=== PATIENT | female | born 1960 | race Caucasian/White ===

== ENCOUNTER 2018-03-28 10:37 | Emergency (ER) | payer BC ==
[~2018-03-28] VITALS: Ht 170.2 cm; Wt 97.1 kg
[2018-03-28 11:45] VITALS: BP 138/72
[2018-03-28] MEDS ORDERED: diphenhydrAMINE HCL 25 MG CAPSULE PO ONE (11:45)
--- NOTE | 2018-03-28 11:47 | PHYS DOC ---
Past Medical History Past Medical History: COPD, Diabetes-Type II, High Cholesterol, Hypertension, Other Additional Past Medical Histor: Eczema. Past Surgical History: Appendectomy, Cholecystectomy, Hysterectomy, Other Additional Past Surgical Histo: Dental. Additional Information: 2 PPD. Alcohol Use: None Drug Use: None Adult General Chief Complaint Chief Complaint: SKIN RASH/ABSCESS HPI HPI Patient is a 57 year old female presents to the ER for evaluation of rash. Patient with history of eczema. Patient reports that onset of diffuse itching and eczema rash to bilateral upper extremities abdomen, right leg. Patient states this feels like previous episodes of eczema. Patient reporting that she typically uses topical medications and has required steroid courses in the past for her eczema. Patient was unable to provide any further details regarding previous medications/creams. Review of Systems Review of Systems Constitutional: Denies fever or chills [] Eyes: Denies change in visual acuity, redness, or eye pain [] HENT: Denies nasal congestion or sore throat [] Respiratory: Denies cough or shortness of breath [] Cardiovascular: no chest pain, no lower extremity edema, no orthopnea GI: Denies abdominal pain, nausea, vomiting, bloody stools or diarrhea [] : Denies dysuria or hematuria [] Musculoskeletal: Denies back pain or joint pain [] Integument: rash present Neurologic: Denies headache, focal weakness or sensory changes [] Endocrine: Denies polyuria or polydipsia [] All other systems were reviewed and found to be within normal limits, except as documented in this note. Current Medications Current Medications Current Medications Medications (Trade) Dose Ordered Sig/Isak Start Time Stop Time Status Last Admin Dose Admin Diphenhydramine HCl (Benadryl) 50 mg 1X ONCE 03/28/18 11:45 03/28/18 11:46 DC 03/28/18 12:13 50 MG Allergies Allergies Allergies Coded Allergies Type Severity Reaction Last Updated Verified No Known Drug Allergies 03/28/18 No Physical Exam Physical Exam Constitutional: Obese, no acute distress, appears older than stated age, nontoxic appearing. HENT: Normocephalic, atraumatic, Eyes: PERRLA, EOMI, Neck: no stridor. [] Cardiovascular:Heart rate regular rhythm, no murmur [] Lungs & Thorax: Bilateral breath sounds clear to auscultation [] Skin: dry, erythematous, pruritic lesions to bilateral UE forearms, ABD and R thigh. Area of urticaria to R shoulder Back: No tenderness, no CVA tenderness. [] Extremities: no edema. [] Neurologic: Alert and oriented X 3, paralysis of LUE and weakened LLE Psychologic: Affect normal, judgement normal, mood normal. [] Current Patient Data Vital Signs Vital Signs Date Time Temp Pulse Resp B/P (MAP) Pulse Ox O2 Delivery O2 Flow Rate FiO2 03/28/18 11:00 98.1 67 18 136/68 (90) 97 Room Air 98.1 EKG EKG [] Radiology/Procedures Radiology/Procedures [] Course & Med Decision Making Course & Med Decision Making Pertinent Labs and Imaging studies reviewed. (See chart for details) []Patient visiting from out of town and does not have her typical eczema prescribed lotion. She is unable to report the name. We'll give her a course of triamcinolone advised [id number] Benadryl. Discussed supportive care. ER return precautions given. Patient verbalized understanding. All questions answered. Dragon Disclaimer Dragon Disclaimer This electronic medical record was generated, in whole or in part, using a voice recognition dictation system. Departure Departure Impression: Primary Impression: Eczema Disposition: 01 HOME, SELF-CARE Condition: STABLE Referrals: NON,STAFF (PCP) Patient Instructions: Eczema Additional Instructions: Thank you for coming to [facility]. Please repeat the attached handouts. Please follow-up with your primary care physician. Return to the ER if your symptoms worsen or you have any other concerns. Take Benadryl 50 mg every 6-8 hours for itchiness. Apply the cream as prescribed. Do not apply the cream to your face or genital region. Scripts Triamcinolone Acetonide (TRIAMCINOLONE ACETONIDE 0.5% CREAM) 15 Gm Cream..g. 1 JANEL TP BID, #30 GM 1 Refill Prov: MILDRED DANIEL DO 03/28/18 MILDRED DANIEL DO Mar 28, 2018 11:47
[2018-03-28] MEDS ORDERED: INSU100I13 SQ (11:56)
[2018-03-28] MEDS ORDERED: WARF1TAB69 PO (11:56)
[2018-03-28] MEDS ORDERED: METH2.5T PO (11:56)
[2018-03-28] MEDS ORDERED: ATOR10TA60 PO (11:56)
[2018-03-28] MEDS ORDERED: BACL10TA PO (11:56)
[2018-03-28] MEDS ORDERED: HYDR10TA2 PO (11:56)
[2018-03-28] MEDS ORDERED: METO-239 PO (11:56)
[2018-03-28] MEDS ORDERED: LISI40TA2 PO (11:56)
[2018-03-28] MEDS ORDERED: TRIA15CR TP (12:06)
== END 2018-03-28 12:18 | disposition home or self-care (01) ==
LOC: ER 10:37
DX: L30.9 Dermatitis, unspecified (principal); L50.9 Urticaria, unspecified; E11.9 Type 2 diabetes mellitus without complications; J44.9 Chronic obstructive pulmonary disease, unspecified; E78.00 Pure hypercholesterolemia, unspecified; I10 Essential (primary) hypertension; F17.200 Nicotine dependence, unspecified, uncomplicated; E66.9 Obesity, unspecified; Z68.33 Body mass index [BMI] 33.0-33.9, adult; Z90.89 Acquired absence of other organs; Z90.710 Acquired absence of both cervix and uterus; Z90.49 Acquired absence of other specified parts of digestive tract
CPT/HCPCS: 99283; Q0163

== ENCOUNTER 2018-03-30 20:43 | Emergency (ER) | payer BC ==
[~2018-03-30] VITALS: Ht 170.2 cm; Wt 97.1 kg
[~2018-03-30 20:43] MED LIST: ATOR10TA60 PO; BACL10TA PO; HYDR10TA2 PO; INSU100I13 SQ; LISI40TA2 PO; METH2.5T PO; METO-239 PO; TRIA15CR TP; WARF1TAB69 PO
[2018-03-30 20:56] VITALS: BP 126/60
[2018-03-30] MEDS ORDERED: CEPH-264 PO (21:19)
[2018-03-30] MEDS ORDERED: PRED20TA PO (21:19)
--- NOTE | 2018-03-30 21:19 | PHYS DOC ---
Past Medical History Past Medical History: COPD, Diabetes-Type II, High Cholesterol, Hypertension, Other Additional Past Medical Histor: Eczema. Past Surgical History: Appendectomy, Cholecystectomy, Hysterectomy, Other Additional Past Surgical Histo: Dental. Alcohol Use: None Drug Use: None Adult General Chief Complaint Chief Complaint: SKIN RASH/ABSCESS HPI HPI Patient is a 57 year old female presents to the ER for evaluation of diffuse rash. Patient reports history of eczema for which patient has been dealing with "flares for years". Camilo is currently up in [place] for a . Reports rash has been worse over the last few days. Denies fever/chills. Reports was prescribed Benadryl and triamcinolone cream. Reports concern that symptoms have not improved and therefore presents again due to continued redness and itching. Reports concern as patient reports she has had similar symptoms before for which patient required steroids and antibiotics. Patient reports history of DM. Reports last glucose was 260. Reports compliance with her insulin but "hasn't been watching her diet like she should." Review of Systems Review of Systems Constitutional: Denies fever or chills [] Eyes: Denies change in visual acuity, redness, or eye pain [] HENT: Denies nasal congestion or sore throat [] Respiratory: Denies cough or shortness of breath [] Cardiovascular: Denies chest pain or palpitations GI: Denies abdominal pain, nausea, vomiting, or diarrhea [] : Denies dysuria or hematuria [] Musculoskeletal: Denies back pain or joint pain [] Integument: Reports diffuse pruritic raised rash, no petechiae Neurologic: Denies headache, focal weakness or sensory changes [] Complete systems were reviewed and found to be within normal limits, except as documented in this note. Current Medications Current Medications Current Medications Medications (Trade) Dose Ordered Sig/Isak Start Time Stop Time Status Last Admin Dose Admin Cephalexin HCl (Keflex) 500 mg 1X ONCE 03/30/18 21:15 03/30/18 21:17 DC 03/30/18 21:25 500 MG Dexamethasone (Decadron) 10 mg 1X ONCE 03/30/18 21:15 03/30/18 21:17 DC 03/30/18 21:25 10 MG Allergies Allergies Allergies Coded Allergies Type Severity Reaction Last Updated Verified No Known Drug Allergies 03/28/18 No Physical Exam Physical Exam Constitutional: Well developed, well nourished, no acute distress, non-toxic appearance. [] HENT: Normocephalic, atraumatic Eyes: Conjunctiva normal, no discharge. [] Neck: Normal range of motion, no tenderness, supple Cardiovascular: Heart rate regular rhythm, no murmur [] Lungs & Thorax: Bilateral breath sounds clear to auscultation [] Abdomen: Soft, no tenderness Skin: Warm, dry, raise papular rash with erythema which is diffuse; worse to left anterior upper chest and shoulder and right upper anterior thigh Back: No tenderness, no CVA tenderness. [] Extremities: No tenderness, ROM intact Neurologic: Alert and oriented X 3, no focal deficits noted. [] Psychologic: Affect normal, judgement normal, mood normal. [] Current Patient Data Vital Signs Vital Signs Date Time Temp Pulse Resp B/P (MAP) Pulse Ox O2 Delivery O2 Flow Rate FiO2 03/30/18 20:56 97.5 83 20 126/60 (82) 97 Room Air 97.5 EKG EKG [] Radiology/Procedures Radiology/Procedures [] Course & Med Decision Making Course & Med Decision Making Pertinent Labs and Imaging studies reviewed. (See chart for details) Patient with past medical history of eczema presents with continued redness, itching, and diffuse rash. Reports was seen at [facility] 2 days ago for same and was prescribed Benadryl and triamcinolone cream. Patient reports symptoms have not significantly improved. Reports this had similar instances which required oral steroids and empiric antibiotics. Symptomatic treatment therefore provided with oral steroid. Will cover empirically with Keflex. Patient stable for discharge with outpatient follow-up with PCP. Discussed findings and plan with patient and family, who acknowledge understanding and agreement. Dragon Disclaimer Dragon Disclaimer This electronic medical record was generated, in whole or in part, using a voice recognition dictation system. Departure Departure Impression: Primary Impression: Rash Disposition: 01 HOME, SELF-CARE Condition: STABLE Referrals: NON,STAFF (PCP) Patient Instructions: Rash, [id number] Scripts Cephalexin (KEFLEX) 500 Mg Capsule 500 MG PO QID for 7 Days, #28 CAP Prov: WALDO NIX DO 03/30/18 Prednisone (PREDNISONE) 20 Mg Tablet 2 TAB PO DAILY for 4 Days, #8 TAB Start on Friday03/31/18 Prov: WALDO NIX DO 03/30/18 WALDO NIX DO Mar 30, 2018 21:19
[2018-03-30] MEDS: DEXAMETHASONE 4 MG TABLET PO ONE (21:25)
[2018-03-30] MEDS: CEPHALEXIN 250 MG CAPSULE. PO ONE (21:25)
== END 2018-03-30 21:28 | disposition home or self-care (01) ==
LOC: ER 20:43
DX: L53.8 Other specified erythematous conditions (principal); L29.9 Pruritus, unspecified; J44.9 Chronic obstructive pulmonary disease, unspecified; E11.9 Type 2 diabetes mellitus without complications; E78.00 Pure hypercholesterolemia, unspecified; I10 Essential (primary) hypertension; Z90.49 Acquired absence of other specified parts of digestive tract; Z90.710 Acquired absence of both cervix and uterus; Z90.89 Acquired absence of other organs
CPT/HCPCS: 99283; J8540